=== PATIENT | male | born 1945 | race Caucasian/White ===

== ENCOUNTER 2019-11-10 08:54 | Inpatient (IN) | payer OTHER ==
[~2019-11-10] VITALS: Ht 182.9 cm; Wt 100.0 kg
[2019-11-10] MEDS ORDERED: HCTZ25 MG PO (09:02)
[2019-11-10] MEDS ORDERED: ACCUPRIL10 MG PO (09:03)
[2019-11-10 09:16] LABS: BASOPHILS 0.1 % (0-2); EOSINOPHILS 0.4 % (0-7); HEMATOCRIT 50.9 % (42.0-54.0); HEMOGLOBIN 16.6 g/dL (13.5-17.5); IMMATURE GRANULOCYTES 0.1 % (0-5); MCH 27.4 pg (26.0-34.0); MCHC 32.6 g/dL (31.0-37.0); MEAN PLATELET VOLUME 8.9 fL (7.4-10.4); NEUTROPHILS 83.4 % (40-80); PLATELET COUNT 130 10x3/uL (130-400); RBC 6.06 10x6/uL (4.20-6.10); WBC 6.8 10x3/uL (4.8-10.8)
[2019-11-10 09:25] LABS: APTT 40.1 SECONDS (22.8-39.4); CALC OSMOLALITY 274 mosm/kg (275-300); CARBON DIOXIDE 25.5 mmol/L (21.0-32.0); CHLORIDE - SERUM 99 mmol/L (98-107); CREATININE - SERUM 1.4 mg/dL (0.6-1.3); GLUCOSE 188 mg/dL (74-106); INR 1.28 (0.85-1.17); POTASSIUM - SERUM 3.6 mmol/L (3.5-5.1); PROTIME 15.9 SECONDS (11.6-15.0); SODIUM 134 mmol/L (136-145); UREA NITROGEN 18 mg/dL (7-18); eGFR NON AFRICAN AMERICAN 53 mL/min (90-120)
[2019-11-10 09:37] LABS: D-DIMER-QUANTITATIVE 14.4 ug/mLFEU (0.20-0.54)
[2019-11-10 09:46] LABS: ALBUMIN 3.6 g/dL (3.4-5.0); ALKALINE PHOSPHATASE 65 U/L (30-120); ALT (SGPT) 22 U/L (10-68); BILIRUBIN - TOTAL 0.77 mg/dL (0.2-1.3); CKMB 3.5 U/L (0.0-3.6); CREATINE KINASE 140 UL (21-232); PRO BNP 1623 pg/mL (0-125); PROTEIN - SERUM 7.3 g/dL (6.4-8.2)
[2019-11-10 09:47] LABS: TROPONIN-I 0.081 ng/mL (0.000-0.060)
[2019-11-10 10:30] VITALS: BP 110/75
[2019-11-10 11:50] VITALS: BP 116/72
--- NOTE | 2019-11-10 11:51 | NUR ---
REPORT TO JONATHAN BECKER
--- NOTE | 2019-11-10 11:56 | NUR ---
TRANSFER FROM ER BY W/C. CALL LIGHT REACH. WILL CONT. PLAN OF CARE.
[2019-11-10 12:14] VITALS: BP 110/75; BMI 29.9
[2019-11-10 14:19] VITALS: Ht 182.9 cm; Wt 100.0 kg
[2019-11-10 15:56] LABS: BILIRUBIN NEGATIVE (NEGATIVE); GLUCOSE NEGATIVE (NEGATIVE); KETONE NEGATIVE (NEGATIVE); NITRITE NEGATIVE (NEGATIVE); UROBILINOGEN NORMAL (NORMAL)
[2019-11-10 17:51] VITALS: BP 114/77
--- NOTE | 2019-11-10 19:05 | NUR ---
ALERT AND AWAKE DENIES NEEDS AT THIS TIME BED IS LOW AND LOCKED PT WITH CALL LIGHT
[2019-11-10 20:00] VITALS: BP 114/82
[2019-11-11] VITALS: BP 127/83
[2019-11-11 08:04] VITALS: BP 112/79
[2019-11-11 09:12] LABS: BASOPHILS 0.5 % (0-2); EOSINOPHILS 1.5 % (0-7); HEMATOCRIT 48.5 % (42.0-54.0); HEMOGLOBIN 15.8 g/dL (13.5-17.5); IMMATURE GRANULOCYTES 0.2 % (0-5); LYMPHOCYTES 10.8 % (15-50); MCH 27.2 pg (26.0-34.0); MCHC 32.6 g/dL (31.0-37.0); MCV 83.6 fL (80.0-100.0); MEAN PLATELET VOLUME 9.2 fL (7.4-10.4); MONOCYTES 10.3 % (2-11); NEUTROPHILS 76.7 % (40-80); PLATELET COUNT 123 10x3/uL (130-400); RDW 16.4 % (11.5-14.5); WBC 5.9 10x3/uL (4.8-10.8)
[2019-11-11 09:50] LABS: ALKALINE PHOSPHATASE 56 U/L (30-120); ALT (SGPT) 21 U/L (10-68); BILIRUBIN - TOTAL 0.84 mg/dL (0.2-1.3); CALCIUM 7.9 mg/dL (8.5-10.1); CARBON DIOXIDE 27.4 mmol/L (21.0-32.0); CHLORIDE - SERUM 100 mmol/L (98-107); CKMB 2.8 U/L (0.0-3.6); CREATINE KINASE 100 UL (21-232); CREATININE - SERUM 1.1 mg/dL (0.6-1.3); POTASSIUM - SERUM 3.8 mmol/L (3.5-5.1); PROTEIN - SERUM 6.4 g/dL (6.4-8.2); SODIUM 135 mmol/L (136-145); UREA NITROGEN 17 mg/dL (7-18); eGFR NON AFRICAN AMERICAN 70 mL/min (90-120)
[2019-11-11 09:52] LABS: CALC OSMOLALITY 271 mosm/kg (275-300); GLUCOSE 96 mg/dL (74-106); TROPONIN-I 0.064 ng/mL (0.000-0.060)
[2019-11-11] MEDS ORDERED: ELIQUIS5 MG PO (12:34)
[2019-11-11 12:49] VITALS: BP 111/76
--- NOTE | 2019-11-11 12:54 | NUR ---
BERENICE NEWBY WENT TO SEE PATIENT FOR ANY D/C NEEDS. PATIENT STATES THAT HE WILL NOT BE DISCHARGED UNTIL HE SEES THE DOCTOR AND THE DOCTOR EXPLAINS WHY HE IS ON THE MEDICINE. PER BERENICE NEWBY SUPPLIED ME WITH THE DISCHARGE PHARMACY FOR MEDICATION TO BE CALLED IN. I SPOKE WITH [place]- PHARMACIST.
--- NOTE | 2019-11-11 13:58 | NUR ---
PT DISCHARGED HOME VIA WHEELCHAIR WITH FAMILY. PIV REMOVED WITH CATHETER TIP FULLY INTACT. TELEMETRY REMOVED AND RETURNED. PT SIGNED PROPER DISCHARGE INSTRUCTIONS AND REMOVED ALL VALUABLES FROM THE ROOM.
--- NOTE | 2019-11-13 09:56 | EC ---
PATIENT:ANANTH IRVING DATE OF SERVICE: 11/10/19 SEX: M MEDICAL RECORD: [id number] DATE OF : 47 LOCATION:D.M2 D.212 AGE OF PATIENT: 73 ADMISSION DATE: 11/10/19 REFERRING PHYSICIAN: INTERPRETING PHYSICIAN: JONATHON ANNE MD ECHOCARDIOGRAM REPORT ECHO CHARGES 4 ECHO COMPLETE Date: 11/11/19 CLINICAL DIAGNOSIS: CHF ECHOCARDIOGRAPHIC MEASUREMENTS (adult normal given) AC root (d.<3.7cm) 2.9 cm LV Septum d (<1.2 cm> 1.3 cm Valve Excursion 2.0 cm LV Septum (systole) 1.4 cm Left Atria (s.<4.0cm> 3.1 cm LVPW d(<1.2cm) 1.3 cm RV (d.<2.3cm) 3.1 cm LVPW (sytole) 1.4 cm LV diastole(<5.6CM) 5.4 cm MV E-F(>70mm/sec) cm LV systole 4.5 cm LVOT Diameter 2.3 cm MV exc.(>10mm) cm Est.ejection fraction (50-75%) % DOPPLER: LVIT cm/sec A 72 cm/sec E 44 cm/sec LA cm/sec RVSP 17.4 mmHg LVOT 130 cm/sec AOP1/2T m/s Asc. Ao 147 cm/sec RVOT 59 cm/sec RA cm/sec PA 72 cm/sec AV Gradient Peak 8.7 mmHg AV Mean 6.1 mmHg AV Area 4.2 cm MV Gradient Peak 2.8 mmHg MV Mean 1.1 mmHg MV Area cm COMMENTS: [employer]: [facility] Shipping Order Clerk: 2 Dr. Sarkar TAPE# PACS Pericardial Effusion N DATE OF SERVICE: FINDINGS: Left ventricles, mild left ventricular hypertrophy is concentric. The patient has ejection fraction of 50% to 55%. There is no obvious regional wall motion abnormalities. Right ventricle is dilated. There is hypokinesis in the free wall of the right ventricle suggestive of acute strain. Left atrium is normal size and function. ECHOCARDIOGRAM REPORT [id number] ANANTH IRVING The aortic valve is normal size, structure and function. Mitral valve has trace mitral regurgitation, otherwise normal structure. Tricuspid valve has trace tricuspid regurgitation. The RVSP may have been underestimated and not well examined. The pulmonic valve is normal. The patient has no pericardial effusion. IMPRESSION: The patient has what appears to be acute strain on the right ventricle and consideration of pulmonary embolism would be reasonable. TRANSINT:[id number] Voice Confirmation ID: [id number] DOCUMENT ID: [id number] JONATHON ANNE MD at 0956 CC: [id number] DICTATION DATE: 11/12/19 1237 ERECTOR OPERATOR: 11/12/19 1441 DIS IN 11/11/19 [place] [id number] [place] [id number]
== END 2019-11-11 13:59 | disposition home or self-care (01) | DRG 175 ==
LOC: D.ER 08:54 → D.M2 10:27
PROVIDERS: Family Medicine; ADMIT Internal Medicine Nephrology; ATTEND Internal Medicine Nephrology
DX: I26.99 Other pulmonary embolism without acute cor pulmonale (principal); I50.31 Acute diastolic (congestive) heart failure; I21.A1 Myocardial infarction type 2; J96.01 Acute respiratory failure with hypoxia; N17.9 Acute kidney failure, unspecified; I11.0 Hypertensive heart disease with heart failure

== ENCOUNTER → 2019-11-22 11:42 | Outpatient (CLI) | payer OTHER ==
[2019-11-10 14:19] VITALS: BMI 29.9
[~2019-11-22 11:42] MED LIST: ACCUPRIL10 MG PO; ELIQUIS5 MG PO; HCTZ25 MG PO
[2019-11-22 12:39] LABS: BASOPHILS 1.2 % (0-2); EOSINOPHILS 4.4 % (0-7); HEMATOCRIT 47.1 % (42.0-54.0); HEMOGLOBIN 15.3 g/dL (13.5-17.5); LYMPHOCYTES 18.3 % (15-50); MCH 27.5 pg (26.0-34.0); MCHC 32.5 g/dL (31.0-37.0); MCV 84.7 fL (80.0-100.0); MEAN PLATELET VOLUME 8.4 fL (7.4-10.4); MONOCYTES 12.5 % (2-11); NEUTROPHILS 63.6 % (40-80); RBC 5.56 10x6/uL (4.20-6.10); RDW 16.3 % (11.5-14.5); WBC 3.4 10x3/uL (4.8-10.8)
[2019-11-22 12:44] LABS: PLATELET COUNT 196 10x3/uL (130-400)
[2019-11-22 13:06] LABS: ALBUMIN 3.5 g/dL (3.4-5.0); ANION GAP 10.7 mmol/L (8-16); BILIRUBIN - TOTAL 0.65 mg/dL (0.2-1.3); CALCIUM 8.2 mg/dL (8.5-10.1); CARBON DIOXIDE 29.4 mmol/L (21.0-32.0); CREATININE - SERUM 1.1 mg/dL (0.6-1.3); POTASSIUM - SERUM 4.1 mmol/L (3.5-5.1); PROTEIN - SERUM 6.8 g/dL (6.4-8.2)
[2019-11-23 14:09] LABS: ALPHA FETOPROTEIN -(TUMOR MRK) 1.5 ng/mL (0.0-8.3); CEA 2.7 ng/mL (0.0-4.7)
== END | disposition home or self-care (01) ==
LOC: D.LAB 11:42
PROVIDERS: ATTEND Internal Medicine Hematology & Oncology
DX: I26.99 Other pulmonary embolism without acute cor pulmonale (principal)

== ENCOUNTER → 2020-09-25 13:26 | Outpatient (CLI) | payer OTHER ==
[2019-11-10 14:19] VITALS: BMI 29.9
== END | disposition home or self-care (01) ==
LOC: D.LAB 13:26
PROVIDERS: ATTEND Internal Medicine Pulmonary Disease
DX: Z11.52 Encounter for screening for COVID-19 (principal)

== ENCOUNTER → 2020-10-02 10:29 | Outpatient (CLI) | payer OTHER ==
[2019-11-10 14:19] VITALS: BMI 29.9
== END | disposition home or self-care (01) ==
LOC: D.RT 08-08 13:00
PROVIDERS: ATTEND Internal Medicine Pulmonary Disease
DX: R06.09 Other forms of dyspnea (principal); Z11.52 Encounter for screening for COVID-19